=== PATIENT | female | born 1950 | race Caucasian/White ===

== ENCOUNTER 2021-02-08 19:28 | Inpatient (IN) ==
[2021-02-09] MEDS ORDERED: Ondansetron 4 MG/2 ML VIAL IVP PRN (00:01)
[2021-02-09] MEDS ORDERED: Melatonin 3 MG TABLET PO PRN (00:01)
[2021-02-09] MEDS ORDERED: Naloxone 0.4 MG/ML INJ IVP PRN (00:01)
[2021-02-09] MEDS ORDERED: D5% in 0.45% NACL 1,000 ML IVC PRN (00:04)
[2021-02-09] MEDS ORDERED: Insulin Regular, Human 100 UNIT/ML IV PRN (00:04)
[2021-02-09] MEDS ORDERED: *HR* Dextrose 50 % in Water (Syg) 50 ML SYRINGE IVP PRN (00:04)
[2021-02-09] MEDS ORDERED: 0.9 % Sodium Chloride 1,000 ML IVC PRN ×2 (00:15)
[2021-02-09 01:42] LABS: VBG HCO3 16 mEq/L (21-27); VBG PCO2 27 mmHg (41-51); VBG PH 7.39 pH Units (7.32-7.42); VBG PO2 168 mmHg (25-50)
[2021-02-09 01:44] LABS: Basophils % 0.1 %; Hematocrit 34.6 % (35.3-44.9); Hemoglobin 11.4 g/dL (11.5-15.4); Immature Granulocytes % 2.3 % (0-4); Lymphocytes # 0.6 K/mcL (0.6-4.6); Lymphocytes % 4.2 %; Mean Corpuscular HGB Conc 32.9 g/dL (31.6-35.5); Mean Corpuscular Hemoglobin 29.7 pg (28.0-33.3); Mean Corpuscular Volume 90.1 fL (83.0-100.0); Mean Platelet Volume 10.4 fL (9.4-12.4); Monocytes # 1.2 K/mcL (0.0-1.3); Monocytes % 8.8 %; Platelet Count 208 K/mcL (140-400); Red Blood Count 3.84 M/mcL (3.82-4.97); Red Cell Distribution Width 13.2 % (11.5-14.5); Segmented Neutrophils % 84.6 %; White Blood Count 14.2 K/mcL (4.3-11.1)
[2021-02-09 01:55] LABS: Alanine Aminotransferase 11 Units/L (7-52); Albumin 3.3 g/dL (3.5-5.7); Alkaline Phosphatase 101 Units/L (34-104); Aspartate Amino Transferase 12 Units/L (13-39); BUN/Creatinine Ratio 17 (6-26); Bilirubin,Total 0.4 mg/dL (0.3-1.0); Blood Urea Nitrogen 17 mg/dL (8-23); Calcium 8.6 mg/dL (8.6-10.3); Carbon Dioxide 16 mEq/L (23-29); Chloride 100 mEq/L (98-107); Globulin 3.4 g/dL (2.4-3.5); Glucose 244 mg/dL (70-105); Magnesium 1.5 mg/dL (1.6-2.6); Osmolality,Calculated 284 (280-300); Phosphorous 1.5 mg/dL (2.7-4.5); Potassium 2.9 mEq/L (3.5-5.1); Sodium 132 mEq/L (136-145); Total Protein 6.7 g/dL (6.4-8.9); eGFR For African Americans > 60 (> 60); eGFR For Non-African Americans 55 (> 60)
[2021-02-09 02:05] LABS: Influenza A PCR Negative (Negative); Influenza B PCR Negative (Negative); Resp. Syncytial Virus PCR Negative (Negative)
[2021-02-09] MEDS: 0.9 % Sodium Chloride w KCl 20 MEQ/1,000 ML MLS IVC SCH (02:05)
[2021-02-09 02:06] LABS: SARS-CoV-2 by PCR (In House) Negative (Negative)
[2021-02-09 02:14] LABS: Estimated Average Glucose 427 mg/dl; Hemoglobin A1C 16.5 %
[2021-02-09] MEDS: D5% in 0.45% NACL w KCl 20 MEQ/1,000 ML MLS IVC PRN ×3 (04:29→13:01)
[2021-02-09 05:46] LABS: VBG HCO3 21 mEq/L (21-27); VBG PCO2 37 mmHg (41-51); VBG PH 7.36 pH Units (7.32-7.42); VBG PO2 98 mmHg (25-50)
[2021-02-09 05:59] LABS: BUN/Creatinine Ratio 17 (6-26); Blood Urea Nitrogen 17 mg/dL (8-23); Calcium 9.2 mg/dL (8.6-10.3); Carbon Dioxide 21 mEq/L (23-29); Chloride 100 mEq/L (98-107); Glucose 169 mg/dL (70-105); Osmolality,Calculated 283 (280-300); Potassium 3.1 mEq/L (3.5-5.1); Sodium 134 mEq/L (136-145); eGFR For African Americans > 60 (> 60); eGFR For Non-African Americans 54 (> 60)
[2021-02-09] MEDS: *HR* Heparin 5,000 UNIT/ML VIAL SQ SCH ×2 (06:47→18:24)
[2021-02-09] MEDS: Azithromycin 500 MG in D5% in Water 250 ML IVPB SCH (06:47)
[2021-02-09] MEDS: Acetaminophen 325 MG TABLET PO PRN (08:09)
[2021-02-09] MEDS: cefTRIAXone 1,000 MG in Water for inj. (sterile) 10 ML IVP SCH (09:48)
[2021-02-09 11:15] LABS: VBG HCO3 22 mEq/L (21-27); VBG PCO2 43 mmHg (41-51); VBG PH 7.32 pH Units (7.32-7.42); VBG PO2 149 mmHg (25-50)
[2021-02-09 11:46] LABS: BUN/Creatinine Ratio 14 (6-26); Blood Urea Nitrogen 13 mg/dL (8-23); Calcium 7.1 mg/dL (8.6-10.3); Carbon Dioxide 21 mEq/L (23-29); Chloride 104 mEq/L (98-107); Glucose 553 mg/dL (70-105); Osmolality,Calculated 293 (280-300); Potassium 4.8 mEq/L (3.5-5.1); Sodium 129 mEq/L (136-145); eGFR For African Americans > 60 (> 60); eGFR For Non-African Americans > 60 (> 60)
[2021-02-09] MEDS ORDERED: Insulin DETEMIR 100 UNIT/ML X5UNITS SUBQ ONE (13:41)
[2021-02-09] MEDS ORDERED: 0.9 % Sodium Chloride 1,000 ML IV ONE (17:10)
[2021-02-09] MEDS: Insulin NPH/REG 70/30 100 UNIT/ML (x5UNIT) SUBQ SCH ×2 (17:41→20:28)
[2021-02-09] MEDS: 0.9 % Sodium Chloride 1,000 ML IVC SCH (19:01)
[2021-02-10] MEDS: Acetaminophen 325 MG TABLET PO PRN (02:14)
[2021-02-10] MEDS: Gabapentin 400 MG CAPSULE PO SCH ×3 (02:32→14:57)
[2021-02-10] MEDS: 0.9 % Sodium Chloride 1,000 ML IVC SCH (04:31)
[2021-02-10] MEDS ORDERED: Azithromycin 500 MG VIAL ONE (05:43)
[2021-02-10] MEDS: *HR* Heparin 5,000 UNIT/ML VIAL SQ SCH (05:46)
[2021-02-10] MEDS: Azithromycin 500 MG in D5% in Water 250 ML IVPB SCH (05:46)
[2021-02-10 06:56] LABS: Hematocrit 31.4 % (35.3-44.9); Hemoglobin 10.4 g/dL (11.5-15.4); Mean Corpuscular HGB Conc 33.1 g/dL (31.6-35.5); Mean Corpuscular Hemoglobin 29.6 pg (28.0-33.3); Mean Corpuscular Volume 89.5 fL (83.0-100.0); Mean Platelet Volume 10.4 fL (9.4-12.4); Platelet Count 185 K/mcL (140-400); Red Blood Count 3.51 M/mcL (3.82-4.97); Red Cell Distribution Width 13.2 % (11.5-14.5); White Blood Count 7.5 K/mcL (4.3-11.1)
[2021-02-10 07:20] LABS: BUN/Creatinine Ratio 14 (6-26); Blood Urea Nitrogen 10 mg/dL (8-23); Calcium 8.4 mg/dL (8.6-10.3); Carbon Dioxide 24 mEq/L (23-29); Chloride 105 mEq/L (98-107); Glucose 72 mg/dL (70-105); Osmolality,Calculated 278 (280-300); Potassium 2.6 mEq/L (3.5-5.1); Sodium 135 mEq/L (136-145); eGFR For African Americans > 60 (> 60); eGFR For Non-African Americans > 60 (> 60)
[2021-02-10] MEDS: 0.9 % Sodium Chloride w KCl 20 MEQ/1,000 ML MLS IVC SCH ×5 (07:29→07:33)
[2021-02-10] MEDS: 0.45 % Sodium Chloride w/KCl 20 MEQ/1,000 ML MLS IVC SCH ×5 (07:34→07:37)
[2021-02-10] MEDS ORDERED: 0.9 % Sodium Chloride w KCl 40 MEQ/1,000 ML MLS IVC SCH (07:45)
[2021-02-10] MEDS: cefTRIAXone 1,000 MG in Water for inj. (sterile) 10 ML IVP SCH (08:23)
[2021-02-10] MEDS: Insulin NPH/REG 70/30 100 UNIT/ML (x5UNIT) SUBQ SCH ×2 (08:23→14:57)
[2021-02-10] MEDS ORDERED: *HR* HYDROcodone/Acet 5/325 mg TABLET PO PRN ×2 (09:10→09:26)
[2021-02-10 16:05] VITALS: BP 117/59; PULSE 112; TEMP 97.9; O2SAT 97
[2021-02-10 17:07] LABS: BUN/Creatinine Ratio 16 (6-26); Blood Urea Nitrogen 10 mg/dL (8-23); Carbon Dioxide 21 mEq/L (23-29); Chloride 109 mEq/L (98-107); Glucose 189 mg/dL (70-105); Osmolality,Calculated 288 (280-300); Potassium 3.2 mEq/L (3.5-5.1); Sodium 137 mEq/L (136-145); eGFR For African Americans > 60 (> 60); eGFR For Non-African Americans > 60 (> 60)
== END 2021-02-10 20:00 | disposition home or self-care (01) | DRG 420 ==
LOC: 2NNU → SUATTDRO 02-09 01:23
PROVIDERS: ADMIT Internal Medicine; ATTEND Internal Medicine

== ENCOUNTER 2021-05-18 13:12 | Inpatient (IN) ==
[2021-05-18] MEDS ORDERED: Isovue-370 500 ML BOTTLE IVP ONE (13:32)
[2021-05-18 14:21] LABS: Basophils % 0.1 %; Hematocrit 30.7 % (35.3-44.9); Hemoglobin 10.1 g/dL (11.5-15.4); Immature Granulocytes % 0.9 % (0-4); Lymphocytes # 1.9 K/mcL (0.6-4.6); Lymphocytes % 10.9 %; Mean Corpuscular HGB Conc 32.9 g/dL (31.6-35.5); Mean Corpuscular Hemoglobin 30.1 pg (28.0-33.3); Mean Corpuscular Volume 91.4 fL (83.0-100.0); Mean Platelet Volume 10.1 fL (9.4-12.4); Monocytes # 0.8 K/mcL (0.0-1.3); Monocytes % 4.6 %; Neutrophils # 14.5 K/mcL (1.6-8.9); Platelet Count 287 K/mcL (140-400); Red Blood Count 3.36 M/mcL (3.82-4.97); Red Cell Distribution Width 12.7 % (11.5-14.5); Segmented Neutrophils % 83.5 %; White Blood Count 17.3 K/mcL (4.3-11.1)
[2021-05-18 14:39] LABS: Alanine Aminotransferase 6 Units/L (7-52); Albumin 3.2 g/dL (3.5-5.7); Albumin/Globulin Ratio 0.8 (1.1-2.2); Alkaline Phosphatase 85 Units/L (34-104); Aspartate Amino Transferase 7 Units/L (13-39); BUN/Creatinine Ratio 21 (6-26); Bilirubin,Total 0.6 mg/dL (0.3-1.0); Blood Urea Nitrogen 22 mg/dL (8-23); Calcium 9.1 mg/dL (8.6-10.3); Carbon Dioxide 20 mEq/L (23-29); Chloride 90 mEq/L (98-107); Glucose 577 mg/dL (70-105); Magnesium 1.8 mg/dL (1.6-2.6); Osmolality,Calculated 298 (280-300); Sodium 129 mEq/L (136-145); Total Protein 7.2 g/dL (6.4-8.9); Troponin I 0.06 ng/mL (< 0.04); eGFR For African Americans > 60 (> 60); eGFR For Non-African Americans 51 (> 60)
[2021-05-18] MEDS ORDERED: cefTRIAXone 1,000 MG in 0.9 % Sodium Chloride 10 ML IVP ONE (14:41)
[2021-05-18 14:49] LABS: Thyroid Stimulating Hormone 0.091 mcIU/mL (0.340-5.600)
[2021-05-18] MEDS ORDERED: 0.9 % Sodium Chloride 1,000 ML IV ONE ×2 (15:49→17:11)
[2021-05-18] MEDS ORDERED: Azithromycin 500 MG in 0.9 % Sodium Chloride 250 ML IVPB ONE (15:49)
[2021-05-18 16:46] LABS: VBG HCO3 17 mEq/L (21-27); VBG PCO2 29 mmHg (41-51); VBG PH 7.37 pH Units (7.32-7.42); VBG PO2 52 mmHg (25-50)
[2021-05-18] MEDS ORDERED: Naloxone 0.4 MG/ML INJ IVP PRN (18:00)
[2021-05-18] MEDS ORDERED: Ondansetron 4 MG/2 ML VIAL IVP PRN (18:00)
[2021-05-18] MEDS ORDERED: D5% in 0.45% NACL 1,000 ML IVC PRN (18:04)
[2021-05-18] MEDS ORDERED: Insulin Regular, Human 100 UNIT/ML IV PRN (18:04)
[2021-05-18] MEDS ORDERED: D5% in 0.45% NACL w KCl 20 MEQ/1,000 ML MLS IVC PRN (18:04)
[2021-05-18] MEDS ORDERED: *HR* Dextrose 50 % in Water (Syg) 50 ML SYRINGE IVP PRN ×2 (18:04→21:18)
[2021-05-18] MEDS ORDERED: 0.9 % Sodium Chloride w KCl 20 MEQ/1,000 ML MLS IVC SCH (18:15)
[2021-05-18 18:29] LABS: Bilirubin,Urine Negative (Negative); Blood,Urine Negative (Negative); Clarity,Urine Clear (Clear); Color,Urine Colorless (Yellow); Glucose,Urine (UA) >=1000 mg/dL (Normal); Ketones,Urine 40 mg/dL (Negative); Leukocyte Esterase,Urine Negative (Negative); Mucus,Urine Few per lpf (None-Few); Nitrite,Urine Negative (Negative); Protein,Urine 30 mg/dL (Neg-Trace); RBC,Urine 0-3 per hpf (0-3); Squamous Epithelial Cell,Urine Few per hpf (None-Few); Urobilinogen,Urine Normal (Normal); WBC,Urine 0-3 per hpf (0-3)
[2021-05-18 18:34] LABS: Influenza A PCR Negative (Negative); Influenza B PCR Negative (Negative); Resp. Syncytial Virus PCR Negative (Negative)
[2021-05-18 18:39] LABS: SARS-CoV-2 by PCR (In House) Negative (Negative)
[2021-05-18] MEDS: 0.9 % Sodium Chloride w KCl 20 MEQ/1,000 ML MLS IVC SCH (19:47)
[2021-05-18] MEDS: 0.9 % Sodium Chloride 1,000 ML IVC SCH (20:01)
[2021-05-18 20:30] LABS: BUN/Creatinine Ratio 22 (6-26); Blood Urea Nitrogen 22 mg/dL (8-23); Calcium 8.9 mg/dL (8.6-10.3); Carbon Dioxide 24 mEq/L (23-29); Chloride 99 mEq/L (98-107); Glucose 324 mg/dL (70-105); Osmolality,Calculated 294 (280-300); Potassium 3.7 mEq/L (3.5-5.1); Sodium 134 mEq/L (136-145); Troponin I 0.04 ng/mL (< 0.04); eGFR For African Americans > 60 (> 60); eGFR For Non-African Americans 56 (> 60)
[2021-05-18] MEDS ORDERED: Dextrose 4 GM Chewable Tablets PO PRN ×2 (21:18)
[2021-05-18] MEDS ORDERED: D5% in Water 1,000 ML IVC PRN (21:18)
[2021-05-18] MEDS: Insulin DETEMIR 100 UNIT/ML X5UNITS SUBQ SCH (21:39)
[2021-05-18] MEDS: Insulin LISPRO 300 UNITS/3 ML VIAL SUBQ SCH (21:40)
[2021-05-19] MEDS: Piperacillin/Tazobactam 3.375 GM in 0.9 % Sodium Chloride Mini Bag 100 ML IVPB SCH ×3 (00:01→16:13)
[2021-05-19] MEDS ORDERED: *HR* HYDROcodone/Acet 7.5/325 mg TABLET PO ONE (02:25)
[2021-05-19 03:22] LABS: Basophils % 0.1 %; Eosinophils % 0.1 %; Hematocrit 32.8 % (35.3-44.9); Hemoglobin 10.2 g/dL (11.5-15.4); Immature Granulocytes % 0.6 % (0-4); Lymphocytes # 1.3 K/mcL (0.6-4.6); Lymphocytes % 8.8 %; Mean Corpuscular HGB Conc 31.1 g/dL (31.6-35.5); Mean Corpuscular Hemoglobin 29.6 pg (28.0-33.3); Mean Corpuscular Volume 95.1 fL (83.0-100.0); Mean Platelet Volume 10.7 fL (9.4-12.4); Monocytes # 0.7 K/mcL (0.0-1.3); Monocytes % 4.8 %; Neutrophils # 12.7 K/mcL (1.6-8.9); Platelet Count 241 K/mcL (140-400); Red Blood Count 3.45 M/mcL (3.82-4.97); Red Cell Distribution Width 12.9 % (11.5-14.5); Segmented Neutrophils % 85.6 %; White Blood Count 14.9 K/mcL (4.3-11.1)
[2021-05-19 04:00] LABS: Estimated Average Glucose 240 mg/dl
[2021-05-19 04:51] LABS: BUN/Creatinine Ratio 26 (6-26); Blood Urea Nitrogen 20 mg/dL (8-23); Calcium 8.4 mg/dL (8.6-10.3); Carbon Dioxide 25 mEq/L (23-29); Chloride 106 mEq/L (98-107); Glucose 100 mg/dL (70-105); Magnesium 1.7 mg/dL (1.6-2.6); Osmolality,Calculated 287 (280-300); Potassium 3.8 mEq/L (3.5-5.1); Sodium 137 mEq/L (136-145); eGFR For African Americans > 60 (> 60); eGFR For Non-African Americans > 60 (> 60)
[2021-05-19] MEDS: *HR* Enoxaparin 40 MG/0.4 ML SYRINGE SQ SCH (06:14)
[2021-05-19] MEDS: Insulin LISPRO 300 UNITS/3 ML VIAL SUBQ SCH ×4 (08:34→21:19)
[2021-05-19] MEDS: Insulin DETEMIR 100 UNIT/ML X5UNITS SUBQ SCH ×2 (08:35→21:20)
[2021-05-19] MEDS: Gabapentin 400 MG CAPSULE PO SCH ×2 (16:01→20:52)
[2021-05-19] MEDS ORDERED: Acetaminophen 325 MG TABLET PO PRN (20:48)
[2021-05-20] MEDS: Piperacillin/Tazobactam 3.375 GM in 0.9 % Sodium Chloride Mini Bag 100 ML IVPB SCH (00:39)
[2021-05-20] MEDS: *HR* Enoxaparin 40 MG/0.4 ML SYRINGE SQ SCH (05:01)
[2021-05-20] MEDS: 0.9 % Sodium Chloride 1,000 ML IVC SCH ×2 (07:03→07:04)
[2021-05-20] MEDS: 0.9 % Sodium Chloride w KCl 20 MEQ/1,000 ML MLS IVC SCH ×2 (07:04→07:05)
[2021-05-20] MEDS: Insulin LISPRO 300 UNITS/3 ML VIAL SUBQ SCH (07:34)
[2021-05-20 07:36] LABS: BUN/Creatinine Ratio 20 (6-26); Blood Urea Nitrogen 13 mg/dL (8-23); Calcium 8.2 mg/dL (8.6-10.3); Carbon Dioxide 24 mEq/L (23-29); Chloride 105 mEq/L (98-107); Glucose 76 mg/dL (70-105); Magnesium 1.5 mg/dL (1.6-2.6); Osmolality,Calculated 279 (280-300); Potassium 3.6 mEq/L (3.5-5.1); Sodium 135 mEq/L (136-145); Vancomycin,Trough 13 mcg/mL (5-10); eGFR For African Americans > 60 (> 60); eGFR For Non-African Americans > 60 (> 60)
[2021-05-20 07:42] VITALS: BP 123/74; PULSE 89; TEMP 98.3; O2SAT 96
[2021-05-20 08:21] LABS: Basophils % 0.2 %; Eosinophils # 0.1 K/mcL (0.0-0.6); Hemoglobin 10.9 g/dL (11.5-15.4); Immature Granulocytes % 0.6 % (0-4); Lymphocytes # 1.7 K/mcL (0.6-4.6); Lymphocytes % 20.5 %; Mean Corpuscular HGB Conc 32.1 g/dL (31.6-35.5); Mean Corpuscular Hemoglobin 28.8 pg (28.0-33.3); Mean Corpuscular Volume 89.7 fL (83.0-100.0); Mean Platelet Volume 9.3 fL (9.4-12.4); Monocytes # 0.4 K/mcL (0.0-1.3); Monocytes % 4.2 %; Neutrophils # 6.1 K/mcL (1.6-8.9); Platelet Count 347 K/mcL (140-400); Red Blood Count 3.79 M/mcL (3.82-4.97); Red Cell Distribution Width 12.9 % (11.5-14.5); Segmented Neutrophils % 73.5 %; White Blood Count 8.3 K/mcL (4.3-11.1)
[2021-05-20] MEDS: Gabapentin 400 MG CAPSULE PO SCH (08:35)
[2021-05-20] MEDS: Insulin DETEMIR 100 UNIT/ML X5UNITS SUBQ SCH (08:36)
[2021-05-20] MEDS ORDERED: Doxycycline 100 MG CAPSULE PO SCH (09:00)
== END 2021-05-20 12:39 | disposition home or self-care (01) | DRG 720 ==
LOC: EMEROOARM 13:12 → 2NNU 13:12 → SUATTDRO 17:49 → 2NNU 18:35 → SUATTDRO 18:42 → 2ANU 05-19 18:18
PROVIDERS: ADMIT Pharmacist; ATTEND Internal Medicine